=== PATIENT | male | born 2000 | race Two or more races ===

== ENCOUNTER → 2022-08-12 | Emergency (ER) | payer SELFPAY ==
[~2022-08-12] VITALS: Ht 188 cm; Wt 120.0 kg
[~2022-08-12] MED LIST: SODIUM CHLORIDE 0.9% 1,000 ML IV ONE
[2022-08-12 14:05] VITALS: BP 135/69
[2022-08-12 15:10] LABS: Calcium 9.1 mg/dL (8.5-10.1); Chloride 110 mmol/L (98-107); Potassium 4.6 mmol/L (3.5-5.1); Sodium 140 mmol/L (136-145)
[2022-08-12 15:11] LABS: Lactic Acid w/Reflex 7.1 mmol/L (0.4-2.0)
[2022-08-12 15:14] LABS: Basophils # (auto) 0 10 ^3/uL (0-0.2); Basophils % (auto) 0.4 % (0.0-2.0); Eosinophils # (auto) 0.1 10 ^3/uL (0-0.8); Eosinophils % (auto) 0.9 % (0.0-7.0); Hematocrit 48.3 % (41.0-53.0); Hemoglobin 16.3 g/dL (13.5-17.5); Lymphocytes # (auto) 2.2 10 ^3/uL (0.4-5.4); Lymphocytes % (auto) 21.8 % (10.0-50.0); Mean Corpuscular Hemoglobin 28.4 pg (28.0-32.0); Mean Corpuscular Hgb Conc. 33.7 g/dL (32.0-36.0); Mean Corpuscular Volume 84.2 fL (80.0-100.0); Monocytes # (auto) 0.6 10 ^3/uL (0-1.3); Neutrophils # (auto) 7.2 10 ^3/uL (1.6-8.6); Neutrophils % (auto) 70.9 % (37.0-80.0); Nucleated Red Blood Cells % 0.1 %; Red Blood Cells 5.74 10^6/uL (4.5-5.90); Red Cell Distribution Width 14.3 % (11.8-14.3); White Blood Cell 10.1 10^3/uL (4.4-10.8)
[2022-08-12 15:16] LABS: Alanine Aminotransferase 67 U/L (16-61); Albumin 4.3 g/dL (3.4-5.0); Alkaline Phosphatase 81 U/L (45-117); Anion Gap 10 (5-15); Aspartate Aminotransferase 30 U/L (15-37); BUN/Creatinine Ratio 10.3 (10.0-20.0); Bilirubin, Total 0.3 mg/dL (0.2-1.0); Blood Alcohol < 3.0 mg/dL (0-5); Blood Urea Nitrogen 13 mg/dL (7-18); Carbon Dioxide 20 mmol/L (21-32); GFR African American 90 mL/min; GFR Non-African American 75 mL/min; Glucose 106 mg/dL (74-106); Magnesium 2.8 mg/dL (1.6-2.6); Total Protein 7.4 g/dL (6.4-8.2)
== END | disposition left against medical advice (07) ==
LOC: EDBD 14:01 → ER 14:01
DX: S09.90XA Unspecified injury of head, initial encounter (principal); R56.9 Unspecified convulsions; R74.02 Elevation of levels of lactic acid dehydrogenase [LDH]; Z53.21 Procedure and treatment not carried out due to patient leaving prior to being seen by health care provider; X58.XXXA Exposure to other specified factors, initial encounter; Y93.89 Activity, other specified; Y92.89 Other specified places as the place of occurrence of the external cause; Y99.8 Other external cause status
CPT/HCPCS: 36415; 80053; 80320; 83605; 83735; 84484; 85025; 96365; 99283; J1953; J7030; J7060

== ENCOUNTER 2023-12-02 15:37 | Emergency (ER) | payer SELFPAY ==
[~2023-12-02] VITALS: Ht 177.8 cm; Wt 120.0 kg
[2023-12-02 16:04] VITALS: PULSE 88; O2SAT 98
[2023-12-02] MEDS: TETANUS-DIPTH-ACEL PERTUSSIS 0.5ML SYR Tdap IM ONE (16:15)
[2023-12-02] MEDS: LIDOCAINE 1% HCL (LOCAL ANESTH.) INJ 20ML MDV IJ ONE (16:23)
[2023-12-02] MEDS: HYDROcodone-ACET 10/325MG TAB PO ONE (16:23)
[2023-12-02 16:24] VITALS: BP 151/76; RESP 20
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
[2023-12-02] MEDS: KETOROLAC TROMETH 60MG/2ML VIAL IM ONE (16:55)
[2023-12-02] MEDS ORDERED: CEPH500C PO (17:15)
[2023-12-02] MEDS ORDERED: IBUP-1456 PO (17:15)
--- NOTE | 2023-12-02 17:17 | DVH ---
CLINICAL INDICATION: LACERATION ON RIGHT HAND TECHNIQUE: 3 radiographic views of the right hand were obtained. Comparison: None FINDINGS/IMPRESSION: There is no evidence of acute fracture or dislocation. Flexion of the proximal interphalangeal joint of the 3rd digit on the oblique view The alignment is anatomical. There is no radiopaque foreign body. Questionable mild soft tissue edema of the medial proximal hand.
== END 2023-12-02 17:12 | disposition home or self-care (01) ==
LOC: ER 15:37
DX: S61.412A Laceration without foreign body of left hand, initial encounter (principal); F17.210 Nicotine dependence, cigarettes, uncomplicated; X58.XXXA Exposure to other specified factors, initial encounter; Y93.89 Activity, other specified; Y92.89 Other specified places as the place of occurrence of the external cause; Y99.8 Other external cause status
CPT/HCPCS: 12002; 73130; 96372; 99283; J1885; J2003; 90715

== ENCOUNTER 2023-12-02 17:58 | Emergency (ER) | payer SELFPAY ==
[~2023-12-02 17:58] MED LIST changes: +CEPH500C PO; +IBUP-1456 PO; -SODIUM CHLORIDE 0.9% 1,000 ML IV ONE
== END 2023-12-02 19:04 | disposition left against medical advice (07) ==
LOC: ER 17:58
DX: M79.643 Pain in unspecified hand (principal); Z53.21 Procedure and treatment not carried out due to patient leaving prior to being seen by health care provider